=== PATIENT | male | born 1990 | race Caucasian/White ===

== ENCOUNTER 2019-06-25 18:43 | Emergency (ER) | payer BC ==
--- NOTE | 2019-06-25 18:53 | Emergency Department Record ---
History of Present Illness - General Chief complaint: ENT Stated complaint: DENTAL PAIN Time Seen by Provider: 06/25/19 18:50 Source: Patient Mode of Arrival: Ambulatory Limitations: No limitations - History of Present Illness Initial comments: 29 yo male presents with continued pain after an extraction last week. He had developed dry socket. He is waiting for an appointment on with Dr Gautam. No fever. No pus. No swelling. MD complaint: Tooth pain -: Days(s) Location: Tooth # Severity: Moderate Quality: Aching, Sharp, Stabbing Consistency: Constant Improves with: None Worsens with: Eating Associated Symptoms: Other - Related Data Previous Rx's Medication Instructions Recorded Penicillin V Potassium 500 mg PO QID #28 tablet 06/25/19 Allergies Allergy/AdvReac Type Severity Reaction Status Date / Time codeine Allergy DIFFICULTY Verified 06/25/19 18:49 BREATHING Review of Systems Constitutional: Denies: Chills, Fever, Malaise, Weakness Eyes: Denies: Eye discharge ENT: Reports: As per HPI, Dental pain. Denies: Congestion, Throat pain Respiratory: Denies: Cough, Dyspnea Cardiovascular: Denies: Chest pain, Palpitations, Syncope Endocrine: Denies: Fatigue, Polydipsia, Polyuria Gastrointestinal: Denies: Abdominal pain, Diarrhea, Nausea, Vomiting Genitourinary: Denies: Dysuria, Frequency, Hematuria Musculoskeletal: Denies: Arthralgia, Back pain, Myalgia Skin: Denies: Bruising, Change in color, Rash Neurological: Denies: Headache Psychiatric: Denies: Anxiety Hematological/Lymphatic: Denies: Easy bleeding, Easy bruising, Swollen glands Past Medical History - SOCIAL HISTORY Smoking Status: Never smoker Drug Use: None - RESPIRATORY Hx Respiratory Disorders: No - CARDIOVASCULAR Hx Cardio Disorders: Yes Hx Hypertension: Yes - NEURO Hx Neuro Disorders: No - GI Hx GI Disorders: No - Hx Genitourinary Disorders: No - ENDOCRINE Hx Endocrine Disorders: No - MUSCULOSKELETAL Hx Musculoskeletal Disorders: No - PSYCH Hx Psych Problems: No - HEMATOLOGY/ONCOLOGY Hx Hematology/Oncology Disorders: No Physical Exam - General General Appearance: Alert, Oriented x3, Cooperative, No acute distress Limitations: No limitations - Head Head exam: Atraumatic, Normal inspection - Eye Eye exam: Normal appearance. negative: Conjunctival injection - ENT ENT exam: Normal exam Ear exam: Normal external inspection Nasal Exam: Normal inspection Mouth exam: Normal external inspection Teeth exam: Dental tenderness #. negative: Dental caries, Fractured tooth #, Gingival enlargement Throat exam: Normal inspection. negative: Tonsillar erythema, Tonsillomegaly, Tonsillar exudate, R peritonsillar mass, L peritonsillar mass - Neck Neck exam: Full ROM. negative: Lymphadenopathy - Respiratory Respiratory exam: Normal lung sounds bilaterally. negative: Rhonchi, Stridor, Wheezes - Cardiovascular Cardiovascular Exam: Regular rate, Normal rhythm, Normal heart sounds - Rectal Rectal exam: Deferred - exam: Deferred - Neurological Neurological exam: Alert, Normal gait, Oriented X3, Reflexes normal - Psychiatric Psychiatric exam: Normal affect, Normal mood - Skin Skin exam: Dry, Intact, Normal color, Warm Course - Reevaluation(s) Reevaluation #1: 06/25/19 19:19 MAPS reviewed Multiple small prescriptions in the last one month He was given a limited number of [place] last visit due to the acute new issue but I discussed this is not possible today as he will need to see his dentist or PCP We discussed antibiotics and one time dose of a steroid in the ED He is on the on-call list tomorrow with his dentist and has and appointment 06/25/19 19:20 Disposition Disposition: Discharge Clinical Impression: Alveolar osteitis Disposition: Home, Self-Care Condition: (1) Good Instructions: Dry Socket (ED) Additional Instructions: Follow up with your dentist as scheduled Prescriptions: Penicillin V Potassium 500 mg PO QID #28 tablet Forms: Patient Portal Access Time of Disposition: 19:01 Quality - Quality Measures Quality Measures: N/A - Blood Pressure Screening Does Patient Have Any of the Following: No Blood Pressure Classification: Hypertensive Reading Systolic Measurement: 191 Diastolic Measurement: 95 Screening for High Blood Pressure: < Pre-Hypertensive BP, F/U Documented > [G8950] Pre-Hypertensive Follow-up Interventions: Referral to alternative/primary care provider.
[2019-06-25] MEDS ORDERED: DEXAMETHASONE SOD PHOSPHATE 10MG/ML VIAL PO ONE (19:04)
== END 2019-06-25 19:11 | disposition home or self-care (01) ==
LOC: ER 18:43
DX: M27.3 Alveolitis of jaws (principal)
CPT/HCPCS: 99283

== ENCOUNTER 2019-07-13 16:14 | Emergency (ER) | payer BC ==
--- NOTE | 2019-07-13 16:40 | Emergency Department Record ---
History of Present Illness - General Chief Complaint: Abdominal Pain Stated Complaint: WHITE BLOOD COUNT HIGH/RED LOW/ABD PAIN Time Seen by Provider: 07/13/19 16:16 Source: Patient Mode of Arrival: Ambulatory Limitations: No limitations - History of Present Illness Initial Comments: 29 yo male presents with a concern about his CBC results that were just obtained during an evaluation at [facility] Emergency Department where he was seen prior to arrival here at [facility] ED. He is concerned because he is having abdominal pain, loose stools, and blood at times in the stools. The symptoms have been ongoing for several weeks. He has seen his PCP Violet SOLIS. A referral to GI has been made but is a couple months out. He reports he had upper and lower endoscopy in May that was normal per him. No fever. His WBC was 14 today at [facility]. MD Complaint: Abdominal pain, Other -: Week(s) Location: LLQ Radiation: LLQ Migration to: LLQ Severity: Moderate Quality: Aching, Cramping Consistency: Intermittent Improves With: Nothing Worsens With: Eating Context: Other Associated Symptoms: Anorexia - Related Data Allergies Allergy/AdvReac Type Severity Reaction Status Date / Time codeine Allergy DIFFICULTY Verified 07/13/19 16:30 BREATHING Review of Systems Constitutional: Reports: Malaise, Weakness. Denies: Chills, Fever Eyes: Denies: Eye discharge ENT: Denies: Congestion Respiratory: Denies: Cough, Dyspnea Cardiovascular: Denies: Chest pain, Palpitations, Syncope Endocrine: Reports: Fatigue. Denies: Polydipsia, Polyuria Gastrointestinal: Reports: Abdominal pain, Diarrhea, Hematemesis, Hematochezia, Nausea, Vomiting, Other (The GI symptoms have been ongoing several weeks to months. Last vomited last .) Genitourinary: Denies: Frequency, Hematuria, Incontinence Musculoskeletal: Denies: Arthralgia, Back pain, Myalgia Skin: Denies: Bruising, Change in color, Rash Neurological: Denies: Headache Psychiatric: Denies: Anxiety Hematological/Lymphatic: Denies: Easy bleeding, Easy bruising Past Medical History - SOCIAL HISTORY Smoking Status: Never smoker Drug Use: None - RESPIRATORY Hx Respiratory Disorders: No - CARDIOVASCULAR Hx Cardio Disorders: Yes Hx Hypertension: Yes - NEURO Hx Neuro Disorders: No - GI Hx GI Disorders: No - Hx Genitourinary Disorders: No - ENDOCRINE Hx Endocrine Disorders: No - MUSCULOSKELETAL Hx Musculoskeletal Disorders: No - PSYCH Hx Psych Problems: No - HEMATOLOGY/ONCOLOGY Hx Hematology/Oncology Disorders: No Physical Exam - General General Appearance: Alert, Oriented x3, Cooperative, No acute distress Limitations: No limitations - Head Head exam: Atraumatic, Normal inspection - Eye Eye exam: Normal appearance, PERRL. negative: Conjunctival injection, Scleral icterus - ENT ENT exam: Normal exam, Mucous membranes moist Ear exam: Normal external inspection Nasal Exam: Normal inspection Mouth exam: Normal external inspection - Neck Neck exam: Normal inspection - Respiratory Respiratory exam: Normal lung sounds bilaterally. negative: Rhonchi, Stridor, Wheezes - Cardiovascular Cardiovascular Exam: Regular rate, Normal rhythm, Normal heart sounds - GI/Abdominal GI/Abdominal exam: Soft. negative: Distended, Guarding, Rebound, Rigid, Tenderness - Rectal Rectal exam: Deferred - exam: Deferred - Extremities Extremities exam: Normal inspection - Back Back exam: Denies: CVA tenderness (R), CVA tenderness (L) - Neurological Neurological exam: Alert, Normal gait, Oriented X3 - Psychiatric Psychiatric exam: Normal affect, Normal mood. negative: Agitated, Anxious - Skin Skin exam: Dry, Intact, Normal color, Warm Course - Reevaluation(s) Reevaluation #1: 07/13/19 The chart from [facility] ED was reviewed including the labs. The patient CT scan was reviewed. No acute findings The patient examination at this time is very benign and reassuring. There is no sign of acute emergent abdominal process. He has some chronic gastrointestinal issues. He has follow up planned with his PCP and a repeat pending GI consultation. No indication for antibiotics, admission or further acute emergent work up. We discussed the CT scan and the importance of continued close follow up with his PCP. Disposition Disposition: Discharge Clinical Impression: Abdominal pain, GI bleeding, Chronic diarrhea Disposition: Home, Self-Care Condition: (1) Good Instructions: Abdominal Pain (ED) Additional Instructions: Review this ER visit and the tests performed with your family doctor Call your doctor for the next available follow up appointment Return to the ER for a recheck if worse, any new concerns or questions Forms: Patient Portal Access Time of Disposition: 19:14 Quality - Quality Measures Quality Measures: N/A - Blood Pressure Screening Does Patient Have Any of the Following: No Blood Pressure Classification: Pre-Hypertensive BP Reading Systolic Measurement: 133 Diastolic Measurement: 77 Screening for High Blood Pressure: < Pre-Hypertensive BP, F/U Documented > [G8950] Pre-Hypertensive Follow-up Interventions: Referral to alternative/primary care provider.
[2019-07-13] MEDS ORDERED: KETOROLAC 30 MG/ML VIAL IVP ONE (17:30)
--- NOTE | 2019-07-15 08:44 | CT SCAN REPORT ---
EXAM: CT OF THE ABDOMEN AND PELVIS WITH CONTRAST HISTORY: STOMACH PAIN AND KIDNEY PAIN. TECHNIQUE: Standard CT imaging of the abdomen and pelvis following the intravenous administration of contrast. Delayed images are obtained through the kidneys. Comparison: None. FINDINGS: The lung bases are clear. The liver is enlarged measuring 20 cm in length. No liver mass is identified. Status post cholecystectomy. No bile duct dilatation. The pancreas appears normal. The spleen is normal. The adrenal glands appear normal. 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 No hydronephrosis or ureterolithiasis. The stomach and small bowel are unremarkable. The bladder is decompressed and grossly unremarkable. Oral contrast has passed into the colon. The colon appears normal. The appendix has been resected. No free fluid or free air is seen. No retroperitoneal adenopathy. No destructive osseous lesion is identified. IMPRESSION: NEGATIVE CT OF THE ABDOMEN AND PELVIS FOR ACUTE ABNORMALITY. JOB NUMBER: [id number] MTDD
== END 2019-07-13 19:22 | disposition home or self-care (01) ==
LOC: ER 16:14
DX: K92.2 Gastrointestinal hemorrhage, unspecified (principal); I10 Essential (primary) hypertension; R19.7 Diarrhea, unspecified
CPT/HCPCS: 74177; 96374; 99284; J1885